=== PATIENT | male | born 1975 | race Caucasian/White ===

== ENCOUNTER 2019-11-06 13:49 | Emergency (ER) | payer SELFPAY ==
[~2019-11-06] VITALS: Ht 190.5 cm; Wt 149.7 kg
[2019-11-06] MEDS ORDERED: ZINC SULFATE 220mg CAP or TAB PO ONE (14:00)
[2019-11-06] MEDS ORDERED: AZITHROMYCIN 500MG/ 250ML 250 ML IV ONE (14:00)
[2019-11-06] MEDS ORDERED: methylPREDNISolone SOD SUCC 125 MG/2 ML VL IV ONE (14:00)
[2019-11-06] MEDS ORDERED: PANTOPRAZOLE 40 MG/10 ML VIAL INJ IV ONE (14:00)
[2019-11-06] MEDS ORDERED: ASCORBIC ACID 500 MG TAB PO ONE (14:00)
[2019-11-06] MEDS ORDERED: ACETAMINOPHEN 500 MG TAB PO ONE (15:00)
[2019-11-06 15:44] LABS: Basophils # (auto) 0 10 ^3/uL (0-0.2); Basophils % (auto) 0.2 % (0.0-2.0); Eosinophils # (auto) 0 10 ^3/uL (0-0.8); Hematocrit 47.4 % (41.0-53.0); Lymphocytes # (auto) 0.8 10 ^3/uL (0.4-5.4); Lymphocytes % (auto) 4.7 % (10.0-50.0); Mean Corpuscular Hemoglobin 31.4 pg (28.0-32.0); Mean Corpuscular Hgb Conc. 33.7 g/dL (32.0-36.0); Mean Corpuscular Volume 93.1 fL (80.0-100.0); Monocytes # (auto) 1.4 10 ^3/uL (0-1.3); Monocytes % (auto) 8.5 % (0.0-12.0); Neutrophils # (auto) 14.2 10 ^3/uL (1.6-8.6); Neutrophils % (auto) 86.6 % (37.0-80.0); Nucleated Red Blood Cells % 0.1 %; Platelet Count (auto) 103 10^3/uL (140-450); Red Blood Cells 5.09 10^6/uL (4.5-5.90); Red Cell Distribution Width 13.4 % (11.8-14.3); White Blood Cell 16.4 10^3/uL (4.4-10.8)
[2019-11-06 15:48] LABS: Albumin 3.5 g/dL (3.4-5.0); Anion Gap 6 (5-15); Blood Urea Nitrogen 13 mg/dL (7-18); Carbon Dioxide 24 mmol/L (21-32); Chloride 104 mmol/L (98-107); Glucose 217 mg/dL (74-106); Potassium 3.8 mmol/L (3.5-5.1); Sodium 134 mmol/L (136-145)
[2019-11-06 15:55] LABS: Alanine Aminotransferase 26 U/L (16-61); Alkaline Phosphatase 70 U/L (45-117); Aspartate Aminotransferase 12 U/L (15-37); BUN/Creatinine Ratio 17.8; Bilirubin, Total 1.3 mg/dL (0.2-1.0); CRP High Sensitivity 9.65 mg/dL (< 0.3); GFR African American 149 mL/min; GFR Non-African American 123 mL/min; Lactate Dehydrogenase 180 U/L (87-241)
[2019-11-06 16:00] VITALS: BP 122/65
[2019-11-06] MEDS ORDERED: cefTRIAXone 1GM/50ML D5W 50 ML IV ONE (16:00)
[2019-11-06] MEDS ORDERED: SODIUM CHLORIDE 0.9% 1,000 ML IV ONE (16:00)
== END 2019-11-06 17:13 | disposition home or self-care (01) ==
LOC: EDUNIT# 13:49 → ER 13:49 → EDBD 13:49 → ER 17:13
DX: R50.9 Fever, unspecified (principal); R06.02 Shortness of breath; R05 Cough; Z20.828 Contact with and (suspected) exposure to other viral communicable diseases; J45.909 Unspecified asthma, uncomplicated; F17.210 Nicotine dependence, cigarettes, uncomplicated
CPT/HCPCS: 36415; 71045; 80053; 82728; 83605; 83615; 83880; 84484; 85025; 85379; 86141; 87040; 93005; 96365; 96366; 96368; 96375; 99285; C9113; C9803; J0456; J0696; J2930; U0003